=== PATIENT | male | born 1945 | race Asian ===

== ENCOUNTER 2024-05-07 12:18 | Emergency (ER) | payer OTHER ==
[~2024-05-07] VITALS: Ht 175.3 cm; Wt 75.0 kg
[~2024-05-07 12:18] MED LIST: EPINEPHRINE 0.1MG/ML (1:10,000) 10ML SYR ONE; ETOMIDATE 2MG/ML 10ML VIAL IV ONE
[2024-05-07 12:21] VITALS: PULSE 129; RESP 26; O2SAT 100
[2024-05-07] MEDS ORDERED: ACETAMINOPHEN 650MG SUPP PR PRN (12:30)
[2024-05-07] MEDS ORDERED: ACETAMINOPHEN 650MG/20.3ML UDC NG PRN (12:30)
[2024-05-07 12:33] LABS: BASOPHILS % 0.2 % (0.0-2.0); EOSINOPHILS % 1.1 % (0.0-5.0); HEMATOCRIT. 38.5 % (42.0-52.0); HEMOGLOBIN. 12.2 g/dL (14.0-18.0); LYMPHOCYTES % 41.9 % (20.0-50.0); MEAN CORPUSCULAR HEMOGLOBIN 27.3 pg (28.0-32.0); MEAN CORPUSCULAR HGB CONC 31.6 g/dL (31.0-37.0); MEAN CORPUSCULAR VOLUME 86.4 fL (80.0-94.0); MEAN PLATELET VOLUME 8.3 fl (7.4-10.4); MONOCYTES % 3.9 % (2.0-8.0); NEUTROPHILS % 52.9 % (40.0-76.0); PLATELET 252 x1000/uL (130-400); RED BLOOD CELL COUNT 4.45 mill/uL (4.7-6.1); RED CELL DISTRIBUTION WIDTH 14.8 % (11.6-14.6)
[2024-05-07] MEDS ORDERED: FENTANYL 2500MCG/250ML PMX 250 ML IV ONE (12:45)
[2024-05-07] MEDS: NOREPINEPHRINE 8MG/250ML PMX 250 ML IV STA (12:59)
[2024-05-07 13:07] LABS: LACTIC ACID 9.3 mmol/L (0.4-2.0)
[2024-05-07 13:09] LABS: CALCIUM 8.2 mg/dL (8.7-10.4); CARBON DIOXIDE 17 mEq/L (21-32)
[2024-05-07 13:11] VITALS: O2SAT 93
[2024-05-07] MEDS: PROPOFOL 10MG/ML 100ML 100 ML IV ONE (13:11)
[2024-05-07 13:14] LABS: GLUCOSE 274 mg/dL (70-105)
[2024-05-07 13:15] LABS: UREA NITROGEN BLOOD 36 mg/dL (9-23)
[2024-05-07 13:15] LABS: BG BASE EXCESS -11.9 mmol/L (-2.0-3.0); BG CARBOXYHEMOGLOBIN 0.1 % (0.5-1.5); BG DEOXYHEMOGLOBIN 8.4 % (0.0-5.0); BG FRACTION INSPIRED OXYGEN 100; BG HCO3 ACT 16.1 mmol/L (21.0-28.0); BG METHEMOGLOBIN 0.3 % (0.5-1.5); BG OXYGEN SATURATION 91.6 % (94.0-98.0); BG OXYHEMOGLOBIN 91.2 % (94.0-98.0); BG PCO2 44.5 mmHg (35.0-48.0); BG PH 7.176 (7.350-7.450); BG PO2 76.7 mmHg (83.0-108.0); BG SAMPLE SITE RIGHT RADIAL; BG TOTAL HEMOGLOBIN 13.1 g/dL (13.5-17.5); BG VENT MODE VENT - AC
[2024-05-07 13:16] LABS: ALANINE AMINOTRANSFERASE 148 IU/L (10-49); ALBUMIN 3.6 g/dL (3.2-4.8); ASPARTATE AMINOTRANSFERASE 112 IU/L (<34)
[2024-05-07 13:17] LABS: BILIRUBIN DIRECT 0.1 mg/dL (<=3.0); BILIRUBIN TOTAL 0.4 mg/dL (0.1-1.0); PHOSPHORUS 6.7 mg/dL (2.5-4.9); PROTEIN TOTAL 5.7 g/dL (6.0-8.3)
[2024-05-07 13:40] LABS: INR 1.1; PROTHROMBIN TIME 11.7 sec (9.6-11.0)
[2024-05-07 13:45] LABS: SODIUM 142 mEq/L (136-145)
[2024-05-07] MEDS ORDERED: AZITHROMYCIN 500MG/250ML 250 ML IV ONE (13:45)
[2024-05-07 13:46] LABS: CHLORIDE 107 mEq/L (98-107)
[2024-05-07 13:47] LABS: POTASSIUM 2.8 mEq/L (3.5-5.1); TROPONIN I HIGH SENSITIVITY 231 ng/L (3.0-53)
[2024-05-07 13:49] VITALS: PULSE 86; RESP 16; TEMP 36.22512; O2SAT 97
[2024-05-07] MEDS: SODIUM CHLORIDE 0.9% 1000ML BAG (SEPSIS BOLUS) IV ONE (14:17)
[2024-05-07 14:29] VITALS: BP 120/83
[2024-05-07] MEDS: CEFTRIAXONE 1GM/50ML 50 ML IV ONE (14:31)
[2024-05-07] MEDS ORDERED: IPRATROPIUM/ALBUTEROL 0.5-3(2.5)MG/3ML NEB HHN PRN (15:00)
[2024-05-07] MEDS ORDERED: DIPHENHYDRAMINE 50MG/ML VIAL IV PRN (15:00)
[2024-05-07] MEDS ORDERED: ONDANSETRON HCL 4MG/2ML INJ IV PRN (15:00)
[2024-05-07] MEDS ORDERED: KCL 20MEQ/100ML PREMIX 100 ML IV SCH (16:00)
[2024-05-08] MEDS ORDERED: AZITHROMYCIN 500MG/250ML 250 ML IV SCH (12:00)
[2024-05-08] MEDS ORDERED: CEFTRIAXONE 1GM/50ML 50 ML IV SCH (14:00)
== END 2024-05-07 16:24 ==
LOC: ER 12:18 → EDBEDREQ 14:01 → EDBEDREQTM 14:01 → ER 16:24
DX: I46.9 Cardiac arrest, cause unspecified (principal); E11.9 Type 2 diabetes mellitus without complications; I10 Essential (primary) hypertension
CPT/HCPCS: 80076; 80048; 82962; 83880; 83605; 83735; 84100; 85025; 85610; 86850; 86900; 86901; 84484; 36415; 84145; 71045; 82805; 82375; 92950; 31500; 93005; 96367; 96365; 99291; 36600; J3010; J0696; J3490 ×5; J2704; J0330; J7030; Z7610 ×3; 94003